=== PATIENT | male | born 1940 | race Caucasian/White ===

== ENCOUNTER → 2023-04-06 07:19 | Outpatient (REF) | payer OTHER, SELFPAY | LOC: DHCBS HW 07:19 | PROVIDERS: ATTENDING PHYSICIAN Internal Medicine Interventional Cardiology; FAMILY PHYSICIAN Internal Medicine | DX: I35.0 Nonrheumatic aortic (valve) stenosis (principal) | CPT/HCPCS: 93306 ==

== ENCOUNTER → 2023-08-04 07:21 | Outpatient (REF) | payer OTHER, SELFPAY | LOC: DHCBC/DCA 07:21 | PROVIDERS: ATTENDING PHYSICIAN Internal Medicine Interventional Cardiology; FAMILY PHYSICIAN Family Medicine | DX: I25.10 Atherosclerotic heart disease of native coronary artery without angina pectoris (principal) | CPT/HCPCS: 78452; 93017; A9500; J2785 ==

== ENCOUNTER 2023-09-22 12:27 | Day surgery (SDC) | payer OTHER, SELFPAY ==
[2023-09-22] VITALS (9 sets, daily range): BP systolic 123–163; BP diastolic 66–98; BMI 25.5
[2023-09-22 16:57] LABS: ACT-LR - POC 279 Seconds (116-155)
[2023-09-22 17:08] LABS: ACT-LR - POC 329 Seconds (116-155)
[2023-09-22 17:20] LABS: ACT-LR - POC 269 Seconds (116-155)
--- NOTE | 2023-09-22 18:09 | PTCARENOTE ---
Received patient from the sanitation laborer after cardiac cath via right femoral artery with angioseal. Dressing right groin is dry and intact, DP and PT pulses with doppler. Patient denies any chest pain or sob, has some discomfort at groin site. Reinforced
post cath restrictions, daughter at the bedside, call valencia in reach.
[2023-09-22] MEDS: NSS 1000 IV (18:58)
--- NOTE | 2023-09-22 19:10 | PTCARENOTE ---
During groin check, firmness noted proximal to right groin dressing, no drainage noted. Pressure applied with reduction in firmness. Reinforced activity restrictions with the patient, daughter at the bedside and reminding her father to avoid moving
RLE. Dr. Nguyen in to see the patient and assessed groin, no further orders, will continue checks as per protocol.
[2023-09-22] MEDS: LIPITOR 40 MG PO (19:33)
[2023-09-22] MEDS: BENICAR 20 MG PO (19:34)
--- NOTE | 2023-09-22 19:45 | ITS.CL.CATH ---
Data Technician - Catheterization
Cardiac Catheterization
Procedure Report:
LEFT HEART CATH AND CORONARY INTERVENTION
Date of Procedure: September 22, 2023
Referring: Dr. Jarrod Nguyen
PROCEDURES:
1. Left heart catheterization with coronary and single-plane left ventriculography
2. Hemodynamic assessment of LAD with the IFR following/below the ischemic threshold with the iFR measuring 0.87, 0.88, and 0.88
3. Successful stenting of the mid LAD with a 2.5 x 22 mm Obed stent that was postdilated with a 2.75 mm noncompliant balloon
INDICATION: This is an 83-year-old gentleman with a past medical history notable for ischemic cardiomyopathy. He has generally done well since 2003 when he was initially referred for coronary angiography and found to have a short subtotal versus
chronic total occlusion of the RCA. Attempted PCI was unsuccessful. The RCA is well collateralized. He was seen by CT surgery and scheduled for bypass, however, he returned with an acute inferolateral wall myocardial infarction secondary to
occlusion of the mid circumflex which was successfully stented with a 3.5 x 28 mm vision stent. His troponin peaked at 133. Subsequent coronary angiograms have been relatively stable with borderline hemodynamically significant stenosis in the mid
LAD. PCI was deferred given lack of symptoms and stable LVEF. Unfortunately, his LVEF had dropped from normal to 35-40% on his most recent echocardiogram and 54% to 29% on nuclear stress study. He remains active and relatively asymptomatic but is
now referred for coronary angiography given the fall and his EF.
ACCESS: Prior attempted access via the right radial artery was unsuccessful and we have deferred to right common femoral approach. Ultrasound guidance was utilized and a 6 Bulgarian sheath was inserted
HEMODYNAMICS (mmHg):
AO (s/d, m) : 164/91
LV (s/d) : 164/20
LVEDP : 27
CORONARY FINDINGS
Dominance: Right
LEFT MAIN: Minor ostial narrowing with no pressure dampening on engagement of a 6 Bulgarian diagnostic catheter.
LEFT ANTERIOR DESCENDING: The LAD arises normally from the left main and runs in the anterior interventricular groove. There is moderately calcified tandem 50 and 60% stenoses in the mid LAD which appear angiographically stable and involve the
origin of a small first diagonal branch. The remainder of the LAD has diffuse nonfocal luminal irregularities. The IFR in the LAD beyond the stenotic segment measured 0.87, 0.88, and 0.88 just at/below the ischemic threshold.
CIRCUMFLEX: The circumflex is a medium caliber nondominant vessel. OM1 is small. OM 2 was previously stented. OM 3 is large and the stent in OM 3 also remains patent with a 50-60% % angiographically stable stenosis noted just beyond the stented
segment.
RIGHT CORONARY: The right coronary artery is a dominant vessel that is 100% occluded in its midportion with well-developed collaterals filling the distal vessel
VENTRICULOGRAPHY: Left ventriculography was performed in DUGAN projection. The digital single-plane left ventricular ejection fraction is visually estimated at 30-35% with severe posterior basal and diaphragmatic inferior hypokinesis that appears
mostly stable when compared to the ventriculogram from April 2022
HEMODYNAMIC ASSESSMENT OF THE LAD WITH A VOLCANO OMNI WIRE: The origin of the left main was cannulated with a 6 Fr EBU 3.5 guide catheter. Intravenous heparin was administered and the ACT was followed during the procedure. Two hundred micrograms
of intracoronary nitroglycerin was given through the guide catheter. A [place] Omni wire was advanced to the guide catheter tip and normalized to guide catheter pressure. The Omni wire was then carefully manipulated across the stenosis in the mid
LAD with the iFR serially measuring at/just below the ischemic threshold at 0.87, 0.88, and 0.88. Given the recent objective fall and LVEF the decision was made to proceed with percutaneous revascularization
ANGIOPLASTY PROCEDURE DETAIL: Upon review of the hemodynamic and angiographic data the decision was made to proceed with angioplasty and stenting of the hemodynamically significant mid LAD stenosis. The ACT was monitored during the procedure. A
BMW guidewire across the stenotic segment in the LAD and was advanced to the distal vessel. Balloon predilation was performed with a 2.0 mm Euphora balloon while the Omni wire was left in the LAD to act as a scoring wire given moderate coronary
calcification. Full balloon expansion was achieved. A 2.5 x 22 mm Obed stent was then advanced over the guidewire and position with angiographic and fluoroscopic guidance across the stenotic segment in the mid LAD. The stent was implanted at
nominal pressures and postdilated to high pressures with a 2.75 mm noncompliant balloon to 12 natali distally and 18 natali in the proximal and midportion of the stent with a nice angiographic result
RADIATION SUMMARY: Fluoro Time (min): 7.5, Dose (mGy): 532, DAP (Gy.cm2) : 37.1
CONCLUSIONS
1. Successful stenting of hemodynamically significant mid LAD stenosis with placement of a 2.5 x 22 mm [place] stent that was implanted at nominal pressures and postdilated with a 2.75 mm noncompliant balloon as above.
2. Chronically occluded mid RCA and angiographically stable circumflex stenosis
3. Moderate left ventricular systolic dysfunction with an estimated ejection fraction of 30-35% as above
RECOMMENDATIONS
1. Uninterrupted dual antiplatelet therapy
2. Would likely benefit from titration of heart failure medications. Will need to reassess LVEF and 40 days post revascularization to determine if ICD is indicated
Copy to: Dr. Jarrod Nguyen
--- NOTE | 2023-09-22 19:59 | PTCARENOTE ---
Pt. received at change of shift. Pt. seen and assessed in room. Pt. on strict bedrest post cardiac cath. R femoral site c/d/i. Pt. instructed to stay on bedrest until 2029. Pt. AOx3, VS WNL, with no complaints at this time. Continuing to monitor the
patient at this time.
[2023-09-22] MEDS: MELATONIN 15 MG PO (21:01)
[2023-09-23 04:19] VITALS: BP 143/92
[2023-09-23 04:25] LABS: Hematocrit 40.1 % (39.0-52.0); Hemoglobin 14.1 g/dL (13.0-18.0); Mean Corp Hgb Conc. 35.2 g/dL (33.0-37.0); Mean Corpuscular Hgb 31.5 pg (27.0-31.0); Mean Corpuscular Volume 89.5 fL (80.0-94.0); Mean Platelet Volume 9.9 fL (7.4-10.4); Platelet Count 154 10^3/uL (130-400); Red Blood Cell Count 4.48 10^6/uL (4.70-6.10); Red Cell Dist. Width 14.2 % (11.5-14.5); White Blood Cell Count 6.5 10^3/uL (4.8-10.8)
[2023-09-23 04:38] VITALS: BMI 25.5
[2023-09-23 04:48] LABS: Blood Urea Nitrogen 20 mg/dl (9-20); Calcium 9.1 mg/dl (8.4-10.2); Carbon Dioxide 23 mmol/L (22-30); Chloride 105 mmol/L (98-107); Estimated Creatinine Clearance 56 ml/min; Glucose 83 mg/dl (70-99); HDL Cholesterol 38 mg/dl; LDL Cholesterol, Calculated 56 mg/dl; Potassium 4.2 mmol/L (3.5-5.1); Sodium 137 mmol/L (135-145); Total Cholesterol 110 mg/dl (50-199); Triglyceride 81 mg/dl (10-149); Very Low Density Lipoprotein 16 mg/dl (0-30); eGFR > 60.00
[2023-09-23 05:39] VITALS: BMI 25.5
[2023-09-23 08:07] VITALS: BP 150/88
[2023-09-23] MEDS: LASIX 40 MG PO (08:08)
[2023-09-23] MEDS: ASPIR LOW (ENTERIC COATED) 81 MG PO (08:08)
[2023-09-23] MEDS: TOPROL XL 25 MG PO (08:08)
--- NOTE | 2023-09-23 08:18 | W.PN.CARDCBS ---
Today's Communication / Plan
-
RECOMMENDATIONS:
-Uninterrupted dual therapy
-Monitor home blood pressures
-Follow-up as appointment has been arranged for early October. I have asked him to monitor home blood pressures with more regularity.
-Continue current heart failure meds
-May consider further titration of olmesartan and/or metoprolol
Impression / Plan
-
IMPRESSION:
-Coronary artery disease with stenting of the mid LAD with a 2.5 x 22 mm Obed stent on 09/22/2023
-Cardiomyopathy with EF 35-40%
-Aortic stenosis: Mild
-Mixed hyperlipidemia: Lipitor okay
-Hypertension: Blood pressures have been elevated.
RECOMMENDATIONS:
-Uninterrupted dual therapy
-Monitor home blood pressures
-Follow-up as appointment has been arranged for early October. I have asked him to monitor home blood pressures with more regularity.
-Continue current heart failure meds
-May consider further titration of olmesartan and/or metoprolol
Progress Note - [facility]
Subjective
Date of Service: September 23, 2023
Feels well without complaint
Objective
Labs:
09/23/23 04:15
09/23/23 04:15
Labs
Hgb 14.1 g/dL (13.0-18.0) 09/23/23 04:15
Hct 40.1 % (39.0-52.0) 09/23/23 04:15
Plt Count 154 10^3/uL (130-400) 09/23/23 04:15
Sodium 137 mmol/L (135-145) 09/23/23 04:15
Potassium 4.2 mmol/L (3.5-5.1) 09/23/23 04:15
BUN 20 mg/dl (9-20) 09/23/23 04:15
Creatinine 0.9 mg/dL (0.7-1.3) 09/23/23 04:15
Glucose 83 mg/dl (70-99) 09/23/23 04:15
Vital Signs and I&O:
Vital Signs
Temp Pulse Resp BP Pulse Ox
97.8 F 83 20 150/88 96
09/23/23 04:19 09/23/23 08:08 09/23/23 04:19 09/23/23 08:08 09/22/23 18:18
Vital Signs
Temp Pulse Resp BP Pulse Ox
97.8 F 83 20 150/88 96
09/23/23 04:19 09/23/23 08:08 09/23/23 04:19 09/23/23 08:08 09/22/23 18:18
Intake & Output
09/20/23 09/21/23 09/22/23 09/23/23
23:59 23:59 23:59 23:59
Intake Total 900 / 900
Balance 900 / 900
Physical Exam
Physical Exam
GEN: AAO x 3. Patient lying in bed. He is awake, conversant and in no acute distress
HEENT: NC/AT, sclera are anicteric,
LUNGS: Clear anteriorly
CV: Regular rate and rhythm. Normal S1/S2. Murmur: Soft murmur upper sternal border
EXT: Right common femoral arteriotomy site is soft and dry
NEURO: No focal neurologic deficits
--- NOTE | 2023-09-23 09:16 | W.DS.TRANS ---
DC Summary - [employer] Specialist
-
Discharge Instructions:
Discharge Diagnosis/Procedures Angioplasty with stent to LAD
Diet Low Cholesterol,2 Gram Sodium
Driving Restrictions No driving for 24 hours
Other Services Cardiac Rehab
Specialty Instructions Weigh Daily
Instructions:
Stand-Alone Forms: DC Instructions- Cath/EP Lab
Changes to Home Medications: No
Discharge Medications:
DC Medications w/original date entered in [facility]
atorvastatin 40 mg tablet 40 mg PO QPM High cholesterol 01/01/19
aspirin 81 mg tablet,delayed release 81 mg PO DAILY Blood clot prevention/tx 01/20/21
clopidogrel 75 mg tablet 75 mg PO QPM Blood clot prevention/tx 07/08/21
melatonin 5 mg tablet 15 mg PO HS PRN Insomnia 12/22/21
vitamins A,C,K-ewqh-tqgtge 4,296 mcg-226 mg-90 mg capsule (PreserVision AREDS) 1 cap PO DAILY Supplement 12/22/21
olmesartan 20 mg tablet 20 mg PO DAILY@1800 Blood pressure #1 tab 01/15/22
polyethylene glycol 3350 17 gram oral powder packet 17 g PO DAILY #14 ea 01/15/22
metoprolol succinate 25 mg tablet,extended release 24 hr 25 mg PO DAILY #30 tabs 04/28/22
furosemide 40 mg tablet (Lasix) 40 mg PO DAILY #90 tabs 05/06/22
acetaminophen 500 mg tablet (Acetaminophen Extra Strength) 1,000 mg PO Q6HPRN PRN pain/fever 05/11/22
Home Medication Changes
Pending Results: No
[2023-09-23 10:50] VITALS: BP 114/80
--- NOTE | 2023-09-23 11:14 | PTCARENOTE ---
d/c instructions read to pt and pt verbalized understanding. removed iv and tele. pt left with belongings from room, educational packets. pt left via wheelchair with staff member.
--- NOTE | 2023-09-23 11:54 | CM ---
CM following for DC planning needs.
Met w/ patient at bedside. Pt. is feeling well and is hopeful for DC soon. Has transport home.
Prior to admit, patient was indep. w/ ADLs, mobility; has supportive family.
Anticipate DC to home, no needs.
Will remain avail. for any needs that may arise.
== END 2023-09-23 12:40 | disposition home or self-care (01) ==
LOC: CATH 12:27
PROVIDERS: Nurse Practitioner Adult Health; ATTENDING PHYSICIAN Internal Medicine Interventional Cardiology; FAMILY PHYSICIAN Internal Medicine
DX: I25.5 Ischemic cardiomyopathy (principal); I25.10 Atherosclerotic heart disease of native coronary artery without angina pectoris; I25.82 Chronic total occlusion of coronary artery; Z79.82 Long term (current) use of aspirin; Z79.02 Long term (current) use of antithrombotics/antiplatelets; Z79.899 Other long term (current) drug therapy
CPT/HCPCS: 80048; 80061; 85027; 85347; 93005; 93458; 93571; C1725; C1760; C1769; C1874; C1894; C9600; Q9967

== ENCOUNTER → 2024-04-04 08:13 | Outpatient (REF) | payer OTHER, SELFPAY | LOC: HWRCS 08:13 | PROVIDERS: ATTENDING PHYSICIAN Internal Medicine Interventional Cardiology; FAMILY PHYSICIAN Internal Medicine | DX: I35.0 Nonrheumatic aortic (valve) stenosis (principal) | CPT/HCPCS: 93306 ==

== ENCOUNTER 2024-04-12 09:19 | Emergency (ER) | payer OTHER, SELFPAY ==
[2024-04-12 09:35] VITALS: BP 149/87
--- NOTE | 2024-04-12 11:37 | ED.MUSCINJ ---
HPI-Injury
General
Chief Complaint: Soft Tissue Injury
Source: patient
Exam Limitations: none
Time Seen by Provider: 04/12/24 10:24
History of Present Illness-Injury
Initial Injury comments:
83-year-old male presents for evaluation of his left leg injury. Patient was putting a log about a week ago. He states half broke off and it pushed him back and he fell. He states a log and landed on his leg. He states it was swollen and bruised
but people kept telling him to get it checked out. Patient states the pain is persistent that is why he decided come to get checked out. He is on Plavix. Denies numbness or tingling. Has been able to walk without difficulty. no fevers or redness.
Past History
Past History
ED Past Medical History: CAD, Cancer (prostate, Colon), HTN, Hypercholesterolemia, SD and Other (CAD, Spinal stenosis, Sigmoid colon CA, Prostate CA,)
ED Past Surgical History: Bowel resection, Cardiac (Stents 2013 and 2020), Orthopedic (Left total knee replacement January 2022) and Other (Back surgery X2,)
Social History
Tobacco: Non-smoker
Alcohol: Occasional
Drug: None
Personal:
Living: alone
Employment: Retired
Family History
Family History: CAD
Phy Exam
Physical Exam
Physical Exam:
CONSTITUTIONAL Vital signs reviewed, Patient alert and oriented to person, place and time. Well-appearing
HEAD atraumatic, normocephalic.
EYES eyelids normal to inspection, Extraocular muscles intact, Conjunctiva normal, Sclera normal.
NECK normal range of motion, Trachea midline, no jugular venous distention.
RESP no respiratory distress
BACK No obvious deformities
UPPER EXTREMITY Gross Range of motion normal, gross motor strength normal
LOWER EXTREMITY Gross range of motion normal, Gross motor strength normal. Gait normal. On the medial aspect of the left lower leg there is a hematoma about midway down medial to the tibia. There is some fluctuance but no surrounding redness, no
warmth, no drainage. There is surrounding ecchymosis from the essentially knee to the ankle with some ecchymosis down below the ankle at the foot. He has normal pulses and the foot is warm and well-perfused. His compartments are soft. He is
walking around the emergency department without difficulty
NEURO Speech normal, No focal motor deficits include, Gurwinder coma scale 15, Memory normal, Cranial Nerves intact to screening exam.
SKIN Skin warm, dry, and normal in color.
PSYCHIATRIC Patient oriented to person place and time, Normal affect.
MDM/Problems Addressed
Differential Diagnosis Includes:
Compartment syndrome, hematoma, cellulitis, abscess
MDM/Problems Addressed:
Hematoma, ecchymosis
*Pulse Oximetry
Patient hypoxic: no
*Critical Care Note
Total Time (30-74mins, 75-104mins- exclusive of procedures): Not Applicable
Data Reviewed
Source: patient
Further Testing Considered But Not Given:
Considered ultrasound but compartments are soft and he is warm and well-perfused. No clinical suspicion for DVT. No edema
Patient Management
Escalation/DeEscalation of care consider admission/obs:
Patient with a hematoma to the left leg. He is on Plavix. Recommended warm compress. Will cover with cephalexin as there is a very small abrasion noted. There is no evidence of current cellulitis.
ED Attending Note
-
Portions of this chart may have been created with voice recognition software.� Occasional wrong word or��sound alike� substitutions may have occurred due to the inherent limitations of voice recognition software.
Discharge Plan
Departure
Patient Disposition: Home (Routine Discharge)
Date of Disposition: 04/12/24
Time of Disposition: 11:40
Patient with high blood pressure during this ER visit?: Yes
Discharge Problem:
Hematoma
Instructions: Contusion (DC), BLOOD PRESSURE, Hematoma
Prescriptions:
New
cephalexin 500 mg capsule
500 mg PO TID Qty: 21 0RF
No Action
atorvastatin 40 MG tablet
40 mg PO QPM
Patient Comments:
aspirin 81 MG tablet,delayed release (DR/EC)
81 mg PO DAILY
clopidogrel 75 MG tablet
75 mg PO QPM
melatonin 5 mg Tablet
15 mg PO HS PRN (Reason: Insomnia)
PreserVision AREDS 14320-226-200 orzm-mm-dume Capsule
1 cap PO DAILY
polyethylene glycol 3350 17 GRAMS powder in packet
17 g PO DAILY Qty: 14 0RF
olmesartan 20 MG tablet
20 mg PO DAILY@1800 Qty: 1 0RF
Rx Instructions:
HOLD if systolic blood pressure <130 while on Oxycodone.
metoprolol succinate 25 mg Tablet Extended Release 24 Hr
25 mg PO DAILY Qty: 30 1RF
furosemide [Lasix] 40 mg tablet
40 mg PO DAILY Qty: 90 5RF
acetaminophen [Acetaminophen Extra Strength] 500 mg tablet
1,000 mg PO Q6HPRN PRN (Reason: pain/fever)
Rx Instructions:
DO NOT exceed >4000 mg daily.
Referrals:
Roque Pelletier MD [Family Provider] -
Activity Restrictions/Additional Instructions:
Please apply warm compresses as discussed. Return immediately for redness, increased swelling, worsening pain or any other concerns. Please have your doctor reevaluate this in the next 5 to 7 days. Keep your leg raised when possible
Interventions
Interventions:
*Risk Screen - Suicide Last Done: 04/12/24 09:37
*Neglect/Abuse Screening Last Done: 04/12/24 09:37
Discharge Date and Time
Print Language: POLISH
[2024-04-12 11:52] VITALS: BP 143/56
== END 2024-04-12 11:53 | disposition home or self-care (01) ==
LOC: EMR 09:19
PROVIDERS: EMERGENCY PHYSICIAN Emergency Medicine; FAMILY PHYSICIAN Internal Medicine
DX: S80.12XA Contusion of left lower leg, initial encounter (principal); W19.XXXA Unspecified fall, initial encounter; I25.10 Atherosclerotic heart disease of native coronary artery without angina pectoris; I10 Essential (primary) hypertension; E78.00 Pure hypercholesterolemia, unspecified; I25.2 Old myocardial infarction; Z79.02 Long term (current) use of antithrombotics/antiplatelets; Z82.49 Family history of ischemic heart disease and other diseases of the circulatory system; Z85.038 Personal history of other malignant neoplasm of large intestine; Z85.46 Personal history of malignant neoplasm of prostate; Z95.5 Presence of coronary angioplasty implant and graft
CPT/HCPCS: 99282